=== PATIENT | female | born 1980 | race Caucasian/White ===

== ENCOUNTER 2017-05-31 15:44 | Emergency (ER) | payer BC ==
[~2017-05-31] VITALS: Ht 157.5 cm; Wt 62.0 kg
[2017-05-31 15:49] VITALS: Ht 157.5 cm; Wt 62.0 kg
[2017-05-31] MEDS ORDERED: IBUP-1542 PO (17:02)
[2017-05-31] MEDS ORDERED: TRAM50TA2 PO (17:03)
--- NOTE | 2017-05-31 17:35 | RADRPT ---
PROCEDURE: CT Head without. CLINICAL INDICATION: Headache. TECHNIQUE: The study was performed utilizing a multi-slice, multidetector CT scanner. Direct spira l 1 mm axial sections were obtained through the head without the use of intravenous contrast materia l. 1 or more of the following dose reduction techniques were utilized: Automated exposure control, adjustment of the mA and/or kV according to patient's size, iterative reconstruction technique. Co quirino and sagittal reformations were obtained. The images were reviewed on a PACS workstation. RADIATION DOSE: CTDIvol: 44.4 mGyDLP: 720.8 mGy-cm COMPARISON: No prior studies are available for comparison. FINDINGS: There is no intracranial hemorrhage, extra-axial fluid collection, mass lesion, midline shift or hyd rocephalus. The ventricles, sulci and cisterns are within normal limits. The white matter is unrem arkable. The palomo-white matter differentiation is preserved. The basal cisterns are patent. The m idline structures are intact. The orbits, calvarium and extracranial soft tissues are normal in eric earance. The visualized paranasal sinuses, mastoid air cells and middle ear cavities are normally ae rated. IMPRESSION: 1. No acute intracranial abnormality. No intracranial hemorrhage, extra-axial fluid collection, ma ss lesion or hydrocephalous. RPTAT: HGAS .Fracisco Schultz MD, MD Date Time Electronically viewed and signed by .Fracisco Schultz MD, MD on 05/31/2017 17:35 .S/
--- NOTE | 2017-05-31 17:42 | ERD ---
ER Documentation Chief Complaint Date/Time DATE: 05/31/17 TIME: 17:40 Chief Complaint Pt presents with intermittent REYES X 1 months . HPI 37-year-old female presents to the emergency department complaining of intermittent moderate 7 out of 10 headaches mostly looking on the left side associated with nausea and visual disturbances for the past month. Patient states that she has been seen by her family care physician who has given her antibiotic for possible sinusitis. Patient states that she took Tylenol without any relief. She denies any neuro deficits ROS All systems reviewed and are negative except as per history of present illness. Medications Home Meds Active Scripts Tramadol HCl (Tramadol HCl) 50 Mg Tablet, 50 MG PO Q6, #20 TAB Prov:DANNY MORRISON PA-C 05/31/17 PMhx/Soc Medical and Surgical Hx: pt denies Surgical Hx Hx Alcohol Use: No Hx Substance Use: No Hx Tobacco Use: No Smoking Status: Current every day smoker Physical Exam Vitals Vital Signs Date Time Temp Pulse Resp B/P Pulse Ox O2 Delivery O2 Flow Rate FiO2 05/31/17 15:49 98.2 86 18 115/67 99 Physical Exam GENERAL: well-developed/well-nourished, in no apparent distress, non-toxic appearing HENT: NC/AT, bilateral tympanic membrane is normal with good cone of light, nares patent, oropharynx clear without exudates EYES: Conjunctiva normal, PERRLA, EOMI, no nystagmus noted NECK: Supple, no lymphadenopathy PULM: CTA bilaterally, no rales, rhonchi, or wheezing heard CV: Normal S1S2, RRR, good capillary refill GI: Soft, non-distended, normal bowel sounds, non-tender BACK: No midline tenderness, no masses, No CVAT EXT: No clubbing, cyanosis, or edema NEURO: Alert and orientated to person, place, and time. CN II-IIX intact. Gait and coordination were normal. Hand retail seasonal specialist strength were equal and within normal limits SKIN: Intact, normal turgor PSYCH: Normal mood and mentation, patient denied SI Procedures/MDM 7-year-old female presents with headache. The migraine. My differential diagnoses include tension, migraine, and cluster headache, overuse medication headache, subarachnoid hemorrhage, meningitis, stroke. Pain relief was given in the ED with some improvement. Neurology exam was normal, speaking and ambulating well. CT of the head did not show any evidence of acute pathology. hemodynamically stable and neurovascularly intact. Prescriptions tramadol were given. Discussed to follow up with a primary care physician in the next couple days. Return to the ER if condition worsens or not improving as expected. Patient agreed and understood this plan. Departure Diagnosis: Primary Impression: Headache Headache type: unspecified Headache chronicity pattern: acute headache Intractability: intractable Qualified Code: R51 - Acute intractable headache , unspecified headache type Condition: Stable Patient Instructions: Self-Care for Headaches, Preventing Migraine Headaches: Triggers, Headache, Migraine (Classical) Referrals: KEVIN NGUYEN (PCP) Additional Instructions: FOLLOW UP WITH YOUR PRIMARY CARE PHYSICIAN TOMORROW.Return to this facility if you are not improving as expected. Take all medicines as directed. Return to this facility if you are not improving as expected. DANNY MORRISON PA-C May 31, 2017 17:42
== END 2017-05-31 18:05 | disposition home or self-care (01) ==
LOC: FTE 15:44
DX: R51 Headache (principal); F17.210 Nicotine dependence, cigarettes, uncomplicated
CPT/HCPCS: 70450; Z7502